=== PATIENT | male | born 1995 | race Caucasian/White ===

== ENCOUNTER 2019-07-12 12:29 | Emergency (ER) | payer OTHER ==
[~2019-07-12] VITALS: Ht 188 cm; Wt 86.0 kg
[2019-07-12 12:38] VITALS: BP 161/90
[2019-07-12] MEDS ORDERED: ibuprofen tablet 400 MG TABLET PO ONE (12:40)
[2019-07-12] MEDS ORDERED: HYDR-4383 PO (12:52)
== END 2019-07-12 14:17 | disposition home or self-care (01) ==
LOC: ER 12:29
DX: S82.831A Other fracture of upper and lower end of right fibula, initial encounter for closed fracture (principal); Z79.899 Other long term (current) drug therapy; W18.39XA Other fall on same level, initial encounter; Y93.89 Activity, other specified; Y92.89 Other specified places as the place of occurrence of the external cause; Y99.8 Other external cause status
CPT/HCPCS: 29515; 73610; 99284

== ENCOUNTER 2019-08-02 06:26 | Day surgery (SDC) | payer OTHER ==
[~2019-08-02] VITALS: Ht 190.5 cm; Wt 94.0 kg
[~2019-08-02 06:26] MED LIST: SERT50TA PO; cefazolin/dext.iso 2gm/100ml 100 ML IV ONE; famotidine 20mg tablet PO ONE; ringers solution, lacted 1,000 ML IV SCH
[2019-08-02 06:40] VITALS: BP 148/78
[2019-08-02] MEDS ORDERED: fentaNYL/PF 50MCG/1 ML 2ML syringe IV PRN ×2 (07:15)
[2019-08-02] MEDS ORDERED: ondansetron/PF 4mg/2ml inj IV PRN (07:15)
[2019-08-02] MEDS ORDERED: labetalol 20mg/4ml (5mg/ml) syringe IV PRN (07:15)
[2019-08-02] MEDS ORDERED: ringers solution, lacted 1,000 ML IV SCH (07:15)
[2019-08-02] MEDS ORDERED: hydrALAZINE 20mg/ml inj. IV PRN (07:15)
[2019-08-02] MEDS ORDERED: morphine 4 MG/ML inj SYRINge IV PRN (07:15)
[2019-08-02] MEDS ORDERED: morphine 2 MG/ML inj. syringe IV PRN (07:15)
[2019-08-02 08:27] LABS: BASOPHILS % (AUTO) 0.5 % (0-1); EOSINOPHILS # (AUTO) 0.2 X10'3 (0-0.9); EOSINOPHILS % (AUTO) 2.9 % (0-6); LYMPHOCYTES # (AUTO) 1.7 X10'3 (1.1-4.8); LYMPHOCYTES % (AUTO) 24.3 % (21-51); MEAN CORPUSCULAR HEMOGLOBIN 29.6 PG (27.0-31.0); MEAN CORPUSCULAR HGB CONC 33.3 g/dL (33.0-36.5); MEAN CORPUSCULAR VOLUME 88.8 FL (78-98); MEAN PLATELET VOLUME 8.6 FL (7.4-10.4); MONOCYTES # (AUTO) 0.5 X10'3 (0-0.9); MONOCYTES % (AUTO) 7.6 % (2-12); NEUTROPHILS # (AUTO) 4.6 X10'3 (1.8-7.7); NEUTROPHILS % (AUTO) 64.7 % (42-75); PRE OP HEMATOCRIT 47.1 % (42.0-52.0); PRE OP HEMOGLOBIN 15.7 g/dL (14.0-17.9); PRE OP PLATELET COUNT 181 X10'3 (140-440); RED BLOOD COUNT 5.31 X10'6 (4.70-6.10); RED CELL DISTRIBUTION WIDTH 13.1 % (11.5-14.5)
[2019-08-02] MEDS ORDERED: MIDAZolam 1mg/ml 10ml vial ONE (09:10)
[2019-08-02] MEDS ORDERED: fentaNYL/PF 50MCG/1 ML 2ML syringe ONE (09:11)
[2019-08-02] MEDS ORDERED: BUPIVAcaine/PF 2.5 mg/ml (0.25%) 30ml vial ONE (09:13)
[2019-08-02] MEDS ORDERED: propofol inj 20 ML IV ONE (09:13)
[2019-08-02] MEDS ORDERED: ondansetron/PF 4mg/2ml inj ONE (09:13)
[2019-08-02] MEDS ORDERED: LIDOcaine 1%/PF 5ML 10 MG/ML VIAL ONE (09:13)
[2019-08-02] MEDS ORDERED: ceFAZolin 1000mg inj ONE (09:13)
[2019-08-02] MEDS ORDERED: cloNIDine hcl/PF 100mcg/ml inj ONE (09:16)
[2019-08-02] MEDS ORDERED: dexamethasone sod phosphate 10mg/ml inj ONE (09:17)
[2019-08-02] MEDS ORDERED: sevoflurane 250ml liquid IH ONE (09:17)
[2019-08-02 11:09] VITALS: BP 119/58
--- NOTE | 2019-08-02 11:09 | NUR ---
Received from OR via [facility] , accompanied by Anesthesiologist LILIANA and report given by Anesthesiolgist. PATIENT WITH 20G PIV IN LEFT UE RUNNING LR AT 100. NON VERBAL PAIN OF 0. VSS. RIGHT GUANAKO SPLINT PRESENT THAT IS CDI, TOES PWD AND + CAP REFILL. GATCHED FOOT OF DELBERT UPON ARRIVAL. 10L MASK ON WITH 98% SATURATIONS. VSS Addendum: 08/02/19 at 1117 by Pablo Villanueva RN, RN Amended: Links added.
[2019-08-02 11:19] VITALS: BP 117/55
[2019-08-02 11:29] VITALS: BP 115/59
[2019-08-02 11:39] VITALS: BP 116/60
[2019-08-02 11:49] VITALS: BP 118/58
--- NOTE | 2019-08-02 11:59 | NUR ---
All dc criteria for discharge home has been met. IV taken out without complications. All questions answered regarding dc paperwork. Vss. Significant other present to take patient home. Dressings cdi and vital signs stable. Taken out via wheelchair to personal vehicle where patient taken home by family/friend. CRUTCHES TAKEN HOME WITH PATIENT. Addendum: 08/02/19 at 1219 by Pablo Villanueva RN, RN Amended: Links added.
== END 2019-08-02 11:59 | disposition home or self-care (01) ==
LOC: PAS 06:26
PROVIDERS: ATTEND Orthopaedic Surgery
DX: S82.61XA Displaced fracture of lateral malleolus of right fibula, initial encounter for closed fracture (principal); G89.18 Other acute postprocedural pain; F41.9 Anxiety disorder, unspecified; F17.290 Nicotine dependence, other tobacco product, uncomplicated; Z72.89 Other problems related to lifestyle; Z88.8 Allergy status to other drugs, medicaments and biological substances; X58.XXXA Exposure to other specified factors, initial encounter; Y93.89 Activity, other specified; Y92.89 Other specified places as the place of occurrence of the external cause; Y99.8 Other external cause status
CPT/HCPCS: 27792; 36415; 64445; 64447; 85025; C1713; J0690; J0735; J2250; J2405; J2704; J3010; J3490; J7120; A4215; A4618; A6449; A7000; J1100